=== PATIENT | female | born 1975 | race Caucasian/White ===

== ENCOUNTER 2020-09-30 12:14 | Emergency (ER) | payer OTHER ==
[2020-09-30 12:28] VITALS: BP 144/99; PULSE 79; TEMP 98.6; BMI 26.6
[2020-09-30 13:37] LABS: EOS % 2.4 % (0-4.5); HEMATOCRIT 39.9 % (32.4-45.2); HEMOGLOBIN 13.3 GM/dl (10.7-15.3); MCH 31.9 pg (25.7-33.7); MCHC 33.3 g/dl (32.0-36.0); MEAN CELL VOLUME 95.8 fl (80-96); MEAN PLT VOLUME 8.2 fl (7.5-11.1); MONO % 8.3 % (3.8-10.2); NEUT % 42.3 % (42.8-82.8); PLATELET COUNT 245 10^3/uL (134-434); RBC 4.16 M/mm3 (3.60-5.2); RDW 12.4 % (11.6-15.6); WHITE BLOOD COUNT 5.7 K/mm3 (4.0-10.8)
[2020-09-30 13:46] LABS: ALBUMIN 4.1 g/dl (3.4-5.0); BILIRUBIN,TOTAL 0.5 mg/dl (0.2-1); CALCIUM 9.1 mg/dl (8.5-10); CREATININE 0.7 mg/dl (0.55-1.3); TOT PROT 7.2 g/dl (6.4-8.2)
[2020-09-30] MEDS ORDERED: IBUPROFEN 600 MG TABLET (FP) PO ONE ×2 (15:57)
== END 2020-09-30 16:04 | disposition home or self-care (01) ==
LOC: FER 12:14
DX: R06.02 Shortness of breath (principal)
CPT/HCPCS: 36415; 71045-TC-FY; 80053; 84484; 84703; 85025; 85379; 93005; 99285-25